=== PATIENT | female | born 1995 | race Caucasian/White ===

== ENCOUNTER 2021-02-09 02:36 | Observation (INO) | payer OTHER ==
[2021-02-09 03:03] VITALS: BMI 26.4
[2021-02-09 03:53] LABS: BASO % 0.6 % (0-2.0); EOS % 1.6 % (0-4.5); HEMATOCRIT 38.7 % (32.4-45.2); HEMOGLOBIN 12.8 GM/dL (10.7-15.3); LYMPH % 36.5 % (8-40); MCH 28.4 pg (25.7-33.7); MEAN CELL VOLUME 86.2 fl (80-96); MEAN PLT VOLUME 9.7 fl (7.5-11.1); MONO % 6.2 % (3.8-10.2); NEUT % 55.1 % (42.8-82.8); PLATELET COUNT 251 10^3/uL (134-434); RBC 4.49 M/mm3 (3.60-5.2); RDW 12.9 % (11.6-15.6); WHITE BLOOD COUNT 12.2 K/mm3 (4.0-10.0)
[2021-02-09 04:04] LABS: INR 1.01 (0.83-1.09); PROTHROMBIN TIME (PATIENT) 12.4 SEC (9.7-13.0)
[2021-02-09 04:06] LABS: ACTIVATED PTT 18.6 SECONDS (25.2-36.5)
[2021-02-09 04:13] LABS: CHLORIDE 106 mmol/L (98-107); SODIUM 139 mmol/L (136-145)
[2021-02-09 04:16] LABS: ANION GAP 8 MMOL/L (8-16); CALCIUM 9.2 mg/dL (8.5-10.1); CO2 25 mmol/L (21-32)
[2021-02-09 04:17] LABS: BLOOD UREA NITROGEN 9.9 mg/dL (7-18); GLUCOSE,RANDOM 90 mg/dL (74-106)
[2021-02-09] MEDS ORDERED: METOCLOPRAMIDE HCL INJECTION 10 MG/2 ML VIAL IVPUSH ONE (04:17)
[2021-02-09] MEDS ORDERED: LACTATED RINGERS SOLUTION 1000 ML INFUS.BAG IV ONE (04:17)
[2021-02-09] MEDS ORDERED: methylPREDNISolone NA SUCC 125 MG/2 ML VIAL IVPUSH ONE (04:18)
[2021-02-09 04:19] LABS: SGOT/AST 25 U/L (15-37); SGPT/ALT 18 U/L (13-61)
[2021-02-09 04:20] LABS: CHOLESTEROL 122 mg/dL (50-200); CREATININE 0.7 mg/dL (0.55-1.3); TRIGLYCERIDES 42 mg/dL (0-150)
[2021-02-09] MEDS ORDERED: ASPIRIN 81 MG CHEWABLE TABLETS PO ONE (04:20)
[2021-02-09 04:21] LABS: BILIRUBIN,TOTAL 0.4 mg/dL (0.2-1); LDL CHOLESTEROL (ONLY SJRH) 63 mg/dL (5-100); TOT PROT 7.3 g/dl (6.4-8.2)
[2021-02-09 04:22] LABS: ALK PHOS 39 U/L (45-117); HDL CHOLESTEROL 50 mg/dL (40-60)
[2021-02-09] MEDS ORDERED: METOCLOPRAMIDE HCL INJECTION 10 MG/2 ML VIAL ONE (04:22)
[2021-02-09] MEDS ORDERED: methylPREDNISolone NA SUCC 125 MG/2 ML VIAL ONE (04:23)
[2021-02-09] MEDS ORDERED: ASPIRIN 81 MG CHEWABLE TABLETS ONE (04:23)
[2021-02-09 10:15] LABS: URINE APPEARANCE Clear; URINE BILIRUBIN Negative (NEGATIVE); URINE COLOR Yellow; URINE GLUCOSE (UA) Negative (NEGATIVE); URINE KETONE Trace (NEGATIVE); URINE LEUK ESTERASE Negative (NEGATIVE); URINE NITRITE Negative (NEGATIVE); URINE PROTEIN Negative (NEGATIVE); URINE UROBILINOGEN 0.2 mg/dL (0.2-1.0)
[2021-02-09] MEDS ORDERED: SUMATRIPTAN SUCCINATE 6 MG/0.5 ML VIAL SQ PRN (14:46)
[2021-02-09] MEDS ORDERED: ASPIRIN 325 MG ENTERIC COATED TABLET (FP) ONE (17:23)
[2021-02-10] MEDS ORDERED: SUMATRIPTAN SUCCINATE 6 MG/0.5 ML VIAL ONE (02:52)
[2021-02-10 07:17] LABS: BASO % 0.2 % (0-2.0); EOS % 0.1 % (0-4.5); HEMATOCRIT 37.3 % (32.4-45.2); HEMOGLOBIN 12.6 GM/dL (10.7-15.3); LYMPH % 30.3 % (8-40); MCH 29.1 pg (25.7-33.7); MCHC 33.7 g/dl (32.0-36.0); MEAN CELL VOLUME 86.2 fl (80-96); MEAN PLT VOLUME 8.9 fl (7.5-11.1); MONO % 7.2 % (3.8-10.2); NEUT % 62.2 % (42.8-82.8); PLATELET COUNT 218 10^3/uL (134-434); RBC 4.33 M/mm3 (3.60-5.2); RDW 12.6 % (11.6-15.6); WHITE BLOOD COUNT 10.8 K/mm3 (4.0-10.0)
[2021-02-10 07:31] LABS: CALCIUM 8.3 mg/dL (8.5-10.1)
[2021-02-10 07:32] LABS: BLOOD UREA NITROGEN 7.5 mg/dL (7-18)
[2021-02-10 07:35] LABS: CREATININE 0.6 mg/dL (0.55-1.3)
[2021-02-10] MEDS ORDERED: PT OWN MED DRAWER 7, Y5N ONE (07:37)
[2021-02-10] MEDS ORDERED: ASPIRIN 325 MG ENTERIC COATED TABLET (FP) PO SCH (10:00)
[2021-02-10 14:34] VITALS: BP 104/60; PULSE 78; TEMP 98.4
[2021-02-10] MEDS ORDERED: TOPIRAMATE 25 MG TABLET PO SCH (22:00)
== END 2021-02-10 18:48 | disposition home or self-care (01) ==
LOC: JER 02:36 → UNDOADMOB 05:37 → INTOOBSV 05:37 → JERBED 05:37 → J4W 02-10 02:59 → JERBED 02-10 02:59 → J4W 02-10 13:19
PROVIDERS: ADMIT Internal Medicine; ATTEND Internal Medicine
PROC: 3E033GC Introduction of Other Therapeutic Substance into Peripheral Vein, Percutaneous Approach (ICD-10-PCS; principal; 2021-02-10)
PROC: 3E0337Z Introduction of Electrolytic and Water Balance Substance into Peripheral Vein, Percutaneous Approach (ICD-10-PCS; 2021-02-10)
PROC: 3E023GC Introduction of Other Therapeutic Substance into Muscle, Percutaneous Approach (ICD-10-PCS; 2021-02-10)
DX: G43.909 Migraine, unspecified, not intractable, without status migrainosus (principal); R47.01 Aphasia; G45.9 Transient cerebral ischemic attack, unspecified; Z91.041 Radiographic dye allergy status; J45.909 Unspecified asthma, uncomplicated; R20.0 Anesthesia of skin
CPT/HCPCS: 36415; 70450-TC; 70496-TC; 70498-TC; 70551-TC; 80048; 80053; 80061; 81003; 82550; 82553; 82962; 83036; 84443; 84484; 84703; 85025; 85610; 85730; 86850; 86900; 86901; 93005; 93010; 96361; 96372; 96374; 96375; 99285-25; C9803; G0378; U0003; U0005